=== PATIENT | female | born 1980 | race Caucasian/White ===

== ENCOUNTER 2016-05-08 20:41 | Emergency (ER) | payer OTHER ==
--- NOTE | 2016-05-08 22:01 | ED ORDER SUMMARY ---
..... Patient: BRENDA DILLARD OrderSheet [facility] VisitID: [id number] [address] [place] [address] 36y, F Registration Date/Time: 05/08/2016 ORDER SHEET Weight: 72.5 kg (stated) Allergies: Codeine, Morphine and Related, Septra, Sulfa Antibiotics GENERAL ORDERS: Elbow 3 or 4V Right Urgent (21:01 05/08/2016 EKoroleva P.A.-C) (Ack 21:01 LMuller) (21:16 SBalde R.N.) MEDICATION ORDERS: Percocet PO 5/325 mg (HIGH ALERT MEDICATION, NOW) (21:01 05/08/2016 EKoroleva P.A.-C) (21:16 SBalde R.N.) Dilaudid IM 1 mg (HIGH ALERT MEDICATION, NOW) (21:40 05/08/2016 EKoroleva P.A.-C) (22:04 SBalde R.N.) Phenergan IM 12.5 mg (HIGH ALERT MEDICATION, NOW) (21:40 05/08/2016 EKoroleva P.A.-C) (22:05 SBalde R.N.) IV FLUIDS: ORDER SHEET NOTES: [Electronically signed by Talita Adams R.N. (22:18 05/08/2016)] [Electronically signed by Bibi Kearns P.A.-C (22:27 05/08/2016)] [Electronically locked/signed by Talita Adams R.N. (22:18 05/08/2016)]
--- NOTE | 2016-05-08 22:01 | ED ORDER SUMMARY ---
..... Patient: BRENDA DILLARD OrderSheet [facility] VisitID: [id number] [address] [place] [address] 36y, F Registration Date/Time: 05/08/2016 ORDER SHEET Weight: 72.5 kg (stated) Allergies: Codeine, Morphine and Related, Septra, Sulfa Antibiotics GENERAL ORDERS: Elbow 3 or 4V Right Urgent (21:01 05/08/2016 EKoroleva P.A.-C) (Ack 21:01 LMuller) (21:16 SBalde R.N.) MEDICATION ORDERS: Percocet PO 5/325 mg (HIGH ALERT MEDICATION, NOW) (21:01 05/08/2016 EKoroleva P.A.-C) (21:16 SBalde R.N.) Dilaudid IM 1 mg (HIGH ALERT MEDICATION, NOW) (21:40 05/08/2016 EKoroleva P.A.-C) (22:04 SBalde R.N.) Phenergan IM 12.5 mg (HIGH ALERT MEDICATION, NOW) (21:40 05/08/2016 EKoroleva P.A.-C) (22:05 SBalde R.N.) IV FLUIDS: ORDER SHEET NOTES: [Electronically signed by Talita Adams R.N. (22:18 05/08/2016)] [Electronically signed by Bibi Kearns P.A.-C (22:27 05/08/2016)] [Electronically locked/signed by Talita Adams R.N. (22:18 05/08/2016)]
--- NOTE | 2016-05-08 22:01 | ED NURSING NOTES ---
Clinical Report - Nurses [facility] [address] [place] [address] 05/08/2016 20:42 [id number] TRI[facility] Triage time 20:50 May 08 2016. Acuity: LEVEL 4. Chief Complaint: RIGHT UPPER EXTREMITY PAIN. Alert. No acute distress. STACIE COMA SCORE: Stacie Coma Scale: 15- eyes open spontaneously (4); best verbal response- oriented x 4 (5); best motor response- obeys commands (6). --20:53 Talita Adams R.N. 20:50 05/08/16. BP: 128/102. HR: 89. RR: 18. O2 saturation: 96%. Temp: 97.4 F. Pain level now 9/10. --20:53 Talita Adams R.N. Weight: 72.5 kg stated. Height/Length: 67 inches Per Patient. BMI: 25.1. --20:50 Talita Adams R.N. Medications None. --20:52 Talita Adams R.N. Allergies Codeine. Morphine and Related. Septra. Sulfa Antibiotics. --20:52 Talita Adams R.N. History Arrived by private vehicle. Historian: patient. Accompanied by family. Primary physician (Araceli Nam). ( Roller Skating tonight with son, fell and landed on her right arm, however it was behind her body when she landed on it, extended posterior.). Injury occurred. This occurred just prior to arrival. Occurred at school. Treatment WARDROBE SPECIALIST: None. PAST MEDICAL HX: Tetanus status: up-to-date. Has not received seasonal influenza immunization. SOCIAL HX: Current every day heavy tobacco smoker- less than 1 pack per day. Occasional alcohol use. History of drug use: marijuana. NUTRITIONAL RISK ASSESSMENT: The nutritional risk assessment revealed no deficiencies. FUNCTIONAL ASSESSMENT: Functional assessment: no impairments noted. LEARNING NEEDS ASSESSMENT: The learning needs assessment revealed no barriers. SKIN INTEGRITY ASSESSMENT: Skin integrity risk assessment completed. No skin integrity risk identified. --20:53 Talita Adams R.N. PROBLEMS: Diarrhea. Vomiting. Headache. Fall. Sprain. Contusion. Lumbar Strain. Interstitial cystitis. Pharyngitis. Gastritis. Gastroesophageal Reflux Disease. Acute Pain. Bronchitis. Laceration. Head Injury. Tetanus Status. Pelvic Pain. Dental Pain. Abdominal Pain. Anxiety Reaction. Arthritis. Urinary Calculi. Immunizations. LNMP - Last Normal Menstrual Period. --20:53 Talita Adams R.N. ADDITIONAL SURGERIES: Bunion on lt foot. . Bunionectomy Rt foot. Colonoscopy. Endoscopy. Hysterectomy. Laparoscopy. Oophorectomy. Previous Abdominal Surgery. --20:53 Talita Adams R.N. Interventions ID band on patient. To room. --20:53 Talita Adams R.N. PHYSICAL ASSESSMENT EXTREMITIES: Right elbow. Right forearm. --20:58 Talita Adams R.N. Ambulatory to room. GENERAL / NEURO / PSYCH: Appears in pain and anxious. (crying). EXTREMITIES: Neuro-vascular status intact to the extremity. SKIN: Skin is warm and dry. --21:16 Talita Adams R.N. NURSING PROGRESS NOTES Cold pack applied. Extremity elevated. Neuro-vascular extremity check. Reassurance given. --20:58 Talita Adams R.N. 21:16 05/08/2016 Percocet (Oxycodone-Acetaminophen) PO 5/325 mg Tablets 1 tab given. Allergies verified, confirmed 5 rights and sedative warning given to the patient. --21:16 Talita Adams R.N. Patient transported to radiology by stretcher with tech. --21:16 Talita Adams R.N. Patient returned from radiology by stretcher with tech. --21:35 Talita Adams R.N. 22:04 05/08/2016 Dilaudid (HYDROmorphone HCl PF) IM 1 mg given. Given in the right deltoid. Allergies verified, confirmed 5 rights and sedative warning given to the patient. --22:04 Talita Adams R.N. 22:05 05/08/2016 Phenergan (Promethazine HCl) IM 12.5 mg given. Given in the right deltoid. Allergies verified, confirmed 5 rights and sedative warning given to the patient. (mixed with Dilaudid 1mg IM). --22:05 Talita Adams R.N. Long arm fiberglass upper extremity splint applied to right arm by nurse. Distal pulses intact and sensation intact (22 in long arm splint to Right Elbow). --22:07 Talita Adams R.N. ( DEMETRIO Bandage applied to Fiberglass. Splint checked by PA.). --22:09 Talita Adams R.N. ( Sling applied). --22:18 Talita Adams R.N. DISPOSITION / DISCHARGE 22:09 05/08/16. BP: 120/86. HR: 80. RR: 18. O2 saturation: 98%. Pain level now 7/10. --22:10 Talita Adams R.N. No learning barriers present. Discharge instructions provided and reviewed with the patient. Reviewed medication(s). Reviewed referral to an orthopedic surgeon. Patient and spouse verbalized understanding. Written instructions provided in [place]. The patient was discharged by the physician assistant wrestling coach. She was discharged home and accompanied by spouse. She left the Emergency Department ambulatory and via private vehicle. Spouse driving. --22:11 Talita Adams R.N. Departure time: 22:17 May 08 2016. ( copy of xray). --22:17 Talita Adams R.N. Locked/Released at 05/08/2016 22:18 by Talita Adams R.N.
--- NOTE | 2016-05-08 22:01 | ED CLINICAL REPORT ---
Clinical Report - Physicians/Mid Levels [facility] [address] [place] [place] [address] 05/08/2016 20:42 [id number] Time Seen: 20:49 May 08 2016. Arrived- By private vehicle. Historian- patient. HISTORY OF PRESENT ILLNESS Chief Complaint: Injury to the right elbow and the right arm. The injury happened just prior to arrival. The patient sustained a direct blow. Occurred at home. Patient is experiencing moderate pain. ( right-hand dominant 36-year-old female with no prior right hand injury, fell backwards onto outstretched hand, without pain to the elbow. Reports incident occurred just prior to arrival. Pain worse with movement.). REVIEW OF SYSTEMS No tingling or skin laceration. All systems otherwise negative, except as recorded above. PAST HISTORY The patient has a dominant hand. She has not had a prior injury to the same area. Tetanus immunization status is up-to-date. SOCIAL HISTORY Smoker- current status unknown. History of drug use: marijuana. Not an IV drug user. ADDITIONAL NOTES The nursing notes have been reviewed. PHYSICAL EXAM Vital Signs: 05/08/2016 20:50 BP: 128/102. HR: 89. RR: 18. O2 saturation: 96%. Temp: 97.4 F. Appearance: Alert. No acute distress. Head: Head atraumatic. Eyes: Pupils equal, round and reactive to light. Eyes normal inspection. ENT: Ears normal. Nose normal. CVS: Normal heart rate and rhythm. Heart sounds normal. Respiratory: No respiratory distress. Breath sounds normal. No decreased air movement or accessory muscle use. Abdomen: No visible injury. Soft. No abdominal tenderness. Back: Normal inspection. No tenderness. No vertebral point tenderness or soft tissue tenderness. Skin: Skin intact. Skin warm. Normal skin color. Extremities: Right shoulder. No tenderness or laceration. Right arm. No tenderness or swelling. Right elbow: mild tenderness and swelling. No deformity. Right forearm: mild tenderness located in the proximal forearm. Neurovascular intact distally. No swelling, laceration, ecchymosis or foreign body. Right wrist. No swelling. Right hand. No tenderness or laceration. Neuro, Vascular and Tendons: Vascular status intact. Motor intact. Neuro: Oriented X 3. LABS, X-RAYS, AND EKG Rt Elbow X-ray: (IMPRESSION: 1. Intra-articular radial head fracture Electronically Final signed by:Masoud Bearden MD 05/08/2016 10:07:46 PM). PROGRESS AND PROCEDURES Splint Application: Time: 22:17 May 08 2016. Fiberglass long arm splint applied to right upper extremity. Splint applied by tech. Reassessed extremity following splint application. Neurovascular intact. Follow-up recommended within 5 days. Course of Care: patient with good distal sensation, no signs of open fracture, no signs of infectious process. Stable. No wrist tenderness or pain , no injury to head. NO signs of fb, or secondary infecitous process. Patient is stable. Physical exam findings are improved. Symptoms better. Patient/family counseled. Disposition: Discharged. CLINICAL IMPRESSION Closed fracture of the head of the right radius INSTRUCTIONS Wear sling and fiberglass splint. Limit use of your hand. Prescription Medications: Ibuprofen 800 mg tablets: take 1 tablet orally every 8 hours as needed for pain. Dispense fifteen (15). No refill. Percocet 5 mg/325 mg: take 1 tablet orally every 6 hours as needed for pain. Dispense twenty-five (25). No refill. Follow-up: Follow up with a specialist your ortho of choice or: Blanca Teran: [phone]. (Electronically signed by Bibi Kearns P.A.-C 05/08/2016 22:27)
--- NOTE | 2016-05-08 22:01 | ED CLINICAL REPORT ---
Clinical Report - Physicians/Mid Levels [facility] [address] [place] [address] 05/08/2016 20:42 [id number] Time Seen: 20:49 May 08 2016. Arrived- By private vehicle. Historian- patient. HISTORY OF PRESENT ILLNESS Chief Complaint: Injury to the right elbow and the right arm. The injury happened just prior to arrival. The patient sustained a direct blow. Occurred at home. Patient is experiencing moderate pain. ( right-hand dominant 36-year-old female with no prior right hand injury, fell backwards onto outstretched hand, without pain to the elbow. Reports incident occurred just prior to arrival. Pain worse with movement.). REVIEW OF SYSTEMS No tingling or skin laceration. All systems otherwise negative, except as recorded above. PAST HISTORY The patient has a dominant hand. She has not had a prior injury to the same area. Tetanus immunization status is up-to-date. SOCIAL HISTORY Smoker- current status unknown. History of drug use: marijuana. Not an IV drug user. ADDITIONAL NOTES The nursing notes have been reviewed. PHYSICAL EXAM Vital Signs: 05/08/2016 20:50 BP: 128/102. HR: 89. RR: 18. O2 saturation: 96%. Temp: 97.4 F. Appearance: Alert. No acute distress. Head: Head atraumatic. Eyes: Pupils equal, round and reactive to light. Eyes normal inspection. ENT: Ears normal. Nose normal. CVS: Normal heart rate and rhythm. Heart sounds normal. Respiratory: No respiratory distress. Breath sounds normal. No decreased air movement or accessory muscle use. Abdomen: No visible injury. Soft. No abdominal tenderness. Back: Normal inspection. No tenderness. No vertebral point tenderness or soft tissue tenderness. Skin: Skin intact. Skin warm. Normal skin color. Extremities: Right shoulder. No tenderness or laceration. Right arm. No tenderness or swelling. Right elbow: mild tenderness and swelling. No deformity. Right forearm: mild tenderness located in the proximal forearm. Neurovascular intact distally. No swelling, laceration, ecchymosis or foreign body. Right wrist. No swelling. Right hand. No tenderness or laceration. Neuro, Vascular and Tendons: Vascular status intact. Motor intact. Neuro: Oriented X 3. LABS, X-RAYS, AND EKG Rt Elbow X-ray: (IMPRESSION: 1. Intra-articular radial head fracture Electronically Final signed by:Masoud Bearden MD 05/08/2016 10:07:46 PM). PROGRESS AND PROCEDURES Splint Application: Time: 22:17 May 08 2016. Fiberglass long arm splint applied to right upper extremity. Splint applied by tech. Reassessed extremity following splint application. Neurovascular intact. Follow-up recommended within 5 days. Course of Care: patient with good distal sensation, no signs of open fracture, no signs of infectious process. Stable. No wrist tenderness or pain , no injury to head. NO signs of fb, or secondary infecitous process. Patient is stable. Physical exam findings are improved. Symptoms better. Patient/family counseled. Disposition: Discharged. CLINICAL IMPRESSION Closed fracture of the head of the right radius INSTRUCTIONS Wear sling and fiberglass splint. Limit use of your hand. Prescription Medications: Ibuprofen 800 mg tablets: take 1 tablet orally every 8 hours as needed for pain. Dispense fifteen (15). No refill. Percocet 5 mg/325 mg: take 1 tablet orally every 6 hours as needed for pain. Dispense twenty-five (25). No refill. Follow-up: Follow up with a specialist your ortho of choice or: Blanca Teran: [phone]. (Electronically signed by Bibi Kearns P.A.-C 05/08/2016 22:27)
--- NOTE | 2016-05-08 22:01 | ED NURSING NOTES ---
Clinical Report - Nurses [facility] [address] [place] [address] 05/08/2016 20:42 [id number] TRI[facility] Triage time 20:50 May 08 2016. Acuity: LEVEL 4. Chief Complaint: RIGHT UPPER EXTREMITY PAIN. Alert. No acute distress. STACIE COMA SCORE: Stacie Coma Scale: 15- eyes open spontaneously (4); best verbal response- oriented x 4 (5); best motor response- obeys commands (6). --20:53 Talita Adams R.N. 20:50 05/08/16. BP: 128/102. HR: 89. RR: 18. O2 saturation: 96%. Temp: 97.4 F. Pain level now 9/10. --20:53 Talita Adams R.N. Weight: 72.5 kg stated. Height/Length: 67 inches Per Patient. BMI: 25.1. --20:50 Talita Adams R.N. Medications None. --20:52 Talita Adams R.N. Allergies Codeine. Morphine and Related. Septra. Sulfa Antibiotics. --20:52 Talita Adams R.N. History Arrived by private vehicle. Historian: patient. Accompanied by family. Primary physician (Araceli Nam). ( Roller Skating tonight with son, fell and landed on her right arm, however it was behind her body when she landed on it, extended posterior.). Injury occurred. This occurred just prior to arrival. Occurred at school. Treatment TANKERMAN: None. PAST MEDICAL HX: Tetanus status: up-to-date. Has not received seasonal influenza immunization. SOCIAL HX: Current every day heavy tobacco smoker- less than 1 pack per day. Occasional alcohol use. History of drug use: marijuana. NUTRITIONAL RISK ASSESSMENT: The nutritional risk assessment revealed no deficiencies. FUNCTIONAL ASSESSMENT: Functional assessment: no impairments noted. LEARNING NEEDS ASSESSMENT: The learning needs assessment revealed no barriers. SKIN INTEGRITY ASSESSMENT: Skin integrity risk assessment completed. No skin integrity risk identified. --20:53 Talita Adams R.N. PROBLEMS: Diarrhea. Vomiting. Headache. Fall. Sprain. Contusion. Lumbar Strain. Interstitial cystitis. Pharyngitis. Gastritis. Gastroesophageal Reflux Disease. Acute Pain. Bronchitis. Laceration. Head Injury. Tetanus Status. Pelvic Pain. Dental Pain. Abdominal Pain. Anxiety Reaction. Arthritis. Urinary Calculi. Immunizations. LNMP - Last Normal Menstrual Period. --20:53 Talita Adams R.N. ADDITIONAL SURGERIES: Bunion on lt foot. . Bunionectomy Rt foot. Colonoscopy. Endoscopy. Hysterectomy. Laparoscopy. Oophorectomy. Previous Abdominal Surgery. --20:53 Talita Adams R.N. Interventions ID band on patient. To room. --20:53 Talita Adams R.N. PHYSICAL ASSESSMENT EXTREMITIES: Right elbow. Right forearm. --20:58 Talita Adams R.N. Ambulatory to room. GENERAL / NEURO / PSYCH: Appears in pain and anxious. (crying). EXTREMITIES: Neuro-vascular status intact to the extremity. SKIN: Skin is warm and dry. --21:16 Talita Adams R.N. NURSING PROGRESS NOTES Cold pack applied. Extremity elevated. Neuro-vascular extremity check. Reassurance given. --20:58 Talita Adams R.N. 21:16 05/08/2016 Percocet (Oxycodone-Acetaminophen) PO 5/325 mg Tablets 1 tab given. Allergies verified, confirmed 5 rights and sedative warning given to the patient. --21:16 Talita Adams R.N. Patient transported to radiology by stretcher with tech. --21:16 Talita Adams R.N. Patient returned from radiology by stretcher with tech. --21:35 Talita Adams R.N. 22:04 05/08/2016 Dilaudid (HYDROmorphone HCl PF) IM 1 mg given. Given in the right deltoid. Allergies verified, confirmed 5 rights and sedative warning given to the patient. --22:04 Talita Adams R.N. 22:05 05/08/2016 Phenergan (Promethazine HCl) IM 12.5 mg given. Given in the right deltoid. Allergies verified, confirmed 5 rights and sedative warning given to the patient. (mixed with Dilaudid 1mg IM). --22:05 Talita Adams R.N. Long arm fiberglass upper extremity splint applied to right arm by nurse. Distal pulses intact and sensation intact (22 in long arm splint to Right Elbow). --22:07 Talita Adams R.N. ( DEMETRIO Bandage applied to Fiberglass. Splint checked by PA.). --22:09 Talita Adams R.N. ( Sling applied). --22:18 Talita Adams R.N. DISPOSITION / DISCHARGE 22:09 05/08/16. BP: 120/86. HR: 80. RR: 18. O2 saturation: 98%. Pain level now 7/10. --22:10 Talita Adams R.N. No learning barriers present. Discharge instructions provided and reviewed with the patient. Reviewed medication(s). Reviewed referral to an orthopedic surgeon. Patient and spouse verbalized understanding. Written instructions provided in Italian. The patient was discharged by the physician music assistant. She was discharged home and accompanied by spouse. She left the Emergency Department ambulatory and via private vehicle. Spouse driving. --22:11 Talita Adams R.N. Departure time: 22:17 May 08 2016. ( copy of xray). --22:17 Talita Adams R.N. Locked/Released at 05/08/2016 22:18 by Talita Adams R.N.
--- NOTE | 2016-05-08 22:08 | DIAGNOSTIC IMAGING REPORT ---
PROCEDURE: XR ELBOW 3 OR 4 VIEWS - RIGHT INDICATION: TRAUMA/INJURY TECHNIQUE: Four views. COMPARISON: None. FINDINGS: Intra-articular radial head fracture with mild displacement. No dislocation. There is an elbow effusion. IMPRESSION: 1. Intra-articular radial head fracture
--- NOTE | 2016-05-08 22:28 | ED MED RECONCILIATION SUMMARY ---
Patient: BRENDA DILLARD Medication Reconciliation Report [facility] VisitID: [id number] [address] [place] [address] 36y, F Registration Date/Time: 05/08/2016 Weight: 72.5 kg Height/Length: 67 in. BMI: 25.1 ALLERGIES: Codeine, Morphine and Related, Septra, Sulfa Antibiotics The patient's Home Medications are listed below: NONE. The source(s) of the original Home Medication information: Not obtained. The following Medications were given to the patient in the Emergency Department: Percocet [PO] PO 1 tab, administered: 05/08/2016 9:16:00 PM Dilaudid [IM] IM 1 mg, administered: 05/08/2016 10:04:00 PM Phenergan [IM] IM 12.5 mg, administered: 05/08/2016 10:05:00 PM The following Medications were prescribed to the patient: Ibuprofen 800 mg tablets: take 1 tablet orally every 8 hours as needed for pain. Dispense fifteen (15). No refill. -- Bibi Kearns, P.A.-C Percocet 5 mg/325 mg: take 1 tablet orally every 6 hours as needed for pain. Dispense twenty-five (25). No refill. -- Bibi Kearns, P.A.-C
--- NOTE | 2016-05-08 22:28 | ED MAR SUMMARY ---
..... Medication Administration Record [facility] [address] [place] [address] Patient: BRENDA DILLARD Visit ID: [id number] 36y, F Weight: 72.5 kg Height/Length: 67 in BMI: 25.1 ALLERGIES: Codeine, Morphine and Related, Septra, Sulfa Antibiotics Given 21:16 05/08/2016 Talita Adams R.N. Medication Administered: PERCOCET [PO] (OXYCODONE-ACETAMINOPHEN), Dose: 1 tab 5/325 mg Tablets PO. Medication Ordered: Percocet PO 5/325 mg (HIGH ALERT MEDICATION, NOW). Given 22:04 05/08/2016 Talita Adams R.N. Medication Administered: DILAUDID [IM] (HYDROMORPHONE HCL PF), Dose: 1 mg IM. Medication Ordered: Dilaudid IM 1 mg (HIGH ALERT MEDICATION, NOW). Given 22:05 05/08/2016 Talita Adams R.N. Medication Administered: PHENERGAN [IM] (PROMETHAZINE HCL), Dose: 12.5 mg IM. Medication Ordered: Phenergan IM 12.5 mg (HIGH ALERT MEDICATION, NOW).
--- NOTE | 2016-05-08 22:28 | ED MAR SUMMARY ---
..... Medication Administration Record [facility] [address] [place] [address] Patient: BRENDA DILLARD Visit ID: [id number] 36y, F Weight: 72.5 kg Height/Length: 67 in BMI: 25.1 ALLERGIES: Codeine, Morphine and Related, Septra, Sulfa Antibiotics Given 21:16 05/08/2016 Talita Adams R.N. Medication Administered: PERCOCET [PO] (OXYCODONE-ACETAMINOPHEN), Dose: 1 tab 5/325 mg Tablets PO. Medication Ordered: Percocet PO 5/325 mg (HIGH ALERT MEDICATION, NOW). Given 22:04 05/08/2016 Talita Adams R.N. Medication Administered: DILAUDID [IM] (HYDROMORPHONE HCL PF), Dose: 1 mg IM. Medication Ordered: Dilaudid IM 1 mg (HIGH ALERT MEDICATION, NOW). Given 22:05 05/08/2016 Talita Adams R.N. Medication Administered: PHENERGAN [IM] (PROMETHAZINE HCL), Dose: 12.5 mg IM. Medication Ordered: Phenergan IM 12.5 mg (HIGH ALERT MEDICATION, NOW).
--- NOTE | 2016-05-08 22:28 | ED DISCHARGE INSTRUCTIONS ---
Patient: BRENDA DILLARD General Instructions [facility] VisitID: [id number] [address] [place] [address] 36y, F Registration Date/Time: 05/08/2016 Closed fracture of the head of the right radius INSTRUCTIONS Wear sling and fiberglass splint. Limit use of your hand. Prescription Medications: Ibuprofen 800 mg tablets: take 1 tablet orally every 8 hours as needed for pain. Dispense fifteen (15). No refill. Percocet 5 mg/325 mg: take 1 tablet orally every 6 hours as needed for pain. Dispense twenty-five (25). No refill. Follow-up: Follow up with a specialist your ortho of choice or: Blanca Teran: [phone]. ADDITIONAL INFORMATION Fracture: Radial Head You have a break (fracture) at the elbow (radial head). This may be a small crack in the bone; or a major break with the broken parts pushed out of position. This fracture usually takes 3-6 weeks to heal. In most cases, initial treatment is with a splint and sling, or a sling alone. Severe fractures may require putting the bone back in place. Sometimes surgery is required. Home Care: Keep your arm elevated to reduce pain and swelling. When sitting or lying down elevate your arm above the level of your heart. You can do this by placing your arm on a pillow that rests on your chest or on a pillow at your side. This is most important during the first 48 hours after injury. Apply an ice pack (ice cubes in a plastic bag, wrapped in a towel) over the injured area for 20 minutes every 1-2 hours the first day. You can place the ice pack inside the sling and directly over the splint. Continue with ice packs 3-4 times a day for the next two days, then as needed for the relief of pain and swelling. If you were given a sling and splint, leave it in place for the time advised. Keep the splint completely dry at all times. Bathe with your splint out of the water, protected with a large plastic bag, rubber-banded at the top end. If a fiberglass splint/cast gets wet, you can dry it with a hair-dryer. If you were given a sling only, wear it for the first week. Unless told otherwise, gradually begin range of motion exercises, after the first week, or as advised by your doctor. You may use acetaminophen (Tylenol) or ibuprofen (Motrin, Advil) to control pain, unless another pain medicine was prescribed. [NOTE: If you have chronic liver or kidney disease or ever had a stomach ulcer or GI bleeding, talk with your doctor before using these medicines.] Follow Up with your doctor in one week, or as advised by our staff, to be sure the bone is healing properly. An elbow joint will become stiff if immobile for too long. Ask your doctor when to begin range of motion exercises to prevent the elbow from getting stiff. [NOTE: If X-rays were taken, they will be reviewed by a radiologist. You will be notified if there are any new findings that may affect your care.] Get Prompt Medical Attention if any of the following occur: The plaster splint becomes wet or soft The fiberglass splint remains wet for more than 24 hours Increased tightness or pain in the elbow Fingers become swollen, cold, blue, numb or tingly Splint Care, Fiberglass The following will help you care for your splint: It will take up totwo hours for your fiber glass splint to fully harden; therefore, do notapply any pressure on it during that time or else it may break. To prevent swelling under the splint, for thefirst 48 hours: If the splint is on yourarm, keep it in a sling or raised to shoulder level when sitting or standing; rest it on your chest or on a pillow at your side when lying down. If the splint is on yourfoot, keep it propped up above the level of your waist when sitting or lying. Avoid crutch walking as much as possible during this time. Keep the splint/cast dry at all times. Bathe with your splint/cast well out of the water, protected with a large plastic bag, rubber-banded at the top end. If a fiberglass cast or splint gets wet, you can dry it with a hair-dryer. Follow-up care Follow up with your doctor or this facility as advised. When to seek medical care Get prompt medical attention if any of the following occur: Bad odor from the splint or wound-fluid stains the splint The splint cracks or remains wet over 24 hours Increasing tightness or pressure under the splint Fingers or toes become swollen, cold, blue, numb or tingly Increased pain under the splint Oxycodone Hydrochloride, Acetaminophen Oral tablet What is this medicine? ACETAMINOPHEN; OXYCODONE (a set a ERIC jossy fen; ox i KOE done) is a pain reliever. It is used to treat mild to moderate pain. How should I use this medicine? Take this medicine by mouth with a full glass of water. Follow the directions on the prescription label. Take your medicine at regular intervals. Do not take your medicine more often than directed. Talk to your yard stocker regarding the use of this medicine in children. Special care may be needed. Patients over 65 years old may have a stronger reaction and need a smaller dose. What side effects may I notice from receiving this medicine? Side effects that you should report to your doctor or health children's zoo caretaker as soon as possible: allergic reactions like skin rash, itching or hives, swelling of the face, lips, or tongue breathing difficulties, wheezing confusion light headedness or fainting spells severe stomach pain yellowing of the skin or the whites of the eyes Side effects that usually do not require medical attention (report to your doctor or health children's zoo caretaker if they continue or are bothersome): dizziness drowsiness nausea vomiting What may interact with this medicine? alcohol antihistamines barbiturates like amobarbital, butalbital, butabarbital, methohexital, pentobarbital, phenobarbital, thiopental, and secobarbital benztropine drugs for bladder problems like solifenacin, trospium, oxybutynin, tolterodine, hyoscyamine, and methscopolamine drugs for breathing problems like ipratropium and tiotropium drugs for certain stomach or intestine problems like propantheline, homatropine methylbromide, glycopyrrolate, atropine, belladonna, and dicyclomine general anesthetics like etomidate, ketamine, nitrous oxide, propofol, desflurane, enflurane, halothane, isoflurane, and sevoflurane medicines for depression, anxiety, or psychotic disturbances medicines for sleep muscle relaxants naltrexone narcotic medicines (opiates) for pain phenothiazines like perphenazine, thioridazine, chlorpromazine, mesoridazine, fluphenazine, prochlorperazine, promazine, and trifluoperazine scopolamine tramadol trihexyphenidyl What if I miss a dose? If you miss a dose, take it as soon as you can. If it is almost time for your next dose, take only that dose. Do not take double or extra doses. Where should I keep my medicine? Keep out of the reach of children. This medicine can be abused. Keep your medicine in a safe place to protect it from theft. Do not share this medicine with anyone. Selling or giving away this medicine is dangerous and against the law. Store at room temperature between 20 and 25 degrees C (68 and 77 degrees F). Keep container tightly closed. Protect from light. This medicine may cause accidental overdose and if it is taken by other adults, children, or pets. Flush any unused medicine down the toilet to reduce the chance of harm. Do not use the medicine after the expiration date. What should I tell my health care provider before I take this medicine? They need to know if you have any of these conditions: brain tumor Crohn's disease, inflammatory bowel disease, or ulcerative colitis drink more than 3 alcohol containing drinks per day drug abuse or addiction head injury heart or circulation problems kidney disease or problems going to the bathroom liver disease lung disease, asthma, or breathing problems an unusual or allergic reaction to acetaminophen, oxycodone, other opioid analgesics, other medicines, foods, dyes, or preservatives or trying to get breast-feeding What should I watch for while using this medicine? Tell your doctor or health children's zoo caretaker if your pain does not go away, if it gets worse, or if you have new or a different type of pain. You may develop tolerance to the medicine. Tolerance means that you will need a higher dose of the medication for pain relief. Tolerance is normal and is expected if you take this medicine for a long time. Do not suddenly stop taking your medicine because you may develop a severe reaction. Your body becomes used to the medicine. This does NOT mean you are addicted. Addiction is a behavior related to getting and using a drug for a non-medical reason. If you have pain, you have a medical reason to take pain medicine. Your doctor will tell you how much medicine to take. If your doctor wants you to stop the medicine, the dose will be slowly lowered over time to avoid any side effects. You may get drowsy or dizzy. Do not drive, use machinery, or do anything that needs mental alertness until you know how this medicine affects you. Do not stand or sit up quickly, especially if you are an older patient. This reduces the risk of dizzy or fainting spells. Alcohol may interfere with the effect of this medicine. Avoid alcoholic drinks. There are different types of narcotic medicines (opiates) for pain. If you take more than one type at the same time, you may have more side effects. Give your health care provider a list of all medicines you use. Your doctor will tell you how much medicine to take. Do not take more medicine than directed. Call emergency for help if you have problems breathing. The medicine will cause constipation. Try to have a bowel movement at least every 2 to 3 days. If you do not have a bowel movement for 3 days, call your doctor or health children's zoo caretaker. Do not take Tylenol (acetaminophen) or medicines that have acetaminophen with this medicine. Too much acetaminophen can be very dangerous. Many nonprescription medicines contain acetaminophen. Always read the labels carefully to avoid taking more acetaminophen. You have been given the following additional information: Radial Head Fracture Splint Care, Fiberglass Oxycodone Hydrochloride, Acetaminophen Oral tablet Limit use of your hand. (Electronically signed by Bibi Kearns P.A.-C 05/08/2016 22:27)
--- NOTE | 2016-05-08 22:28 | ED MED RECONCILIATION SUMMARY ---
Patient: BRENDA DILLARD Medication Reconciliation Report [facility] VisitID: [id number] [address] [place] [address] 36y, F Registration Date/Time: 05/08/2016 Weight: 72.5 kg Height/Length: 67 in. BMI: 25.1 ALLERGIES: Codeine, Morphine and Related, Septra, Sulfa Antibiotics The patient's Home Medications are listed below: NONE. The source(s) of the original Home Medication information: Not obtained. The following Medications were given to the patient in the Emergency Department: Percocet [PO] PO 1 tab, administered: 05/08/2016 9:16:00 PM Dilaudid [IM] IM 1 mg, administered: 05/08/2016 10:04:00 PM Phenergan [IM] IM 12.5 mg, administered: 05/08/2016 10:05:00 PM The following Medications were prescribed to the patient: Ibuprofen 800 mg tablets: take 1 tablet orally every 8 hours as needed for pain. Dispense fifteen (15). No refill. -- Bibi Kearns, P.A.-C Percocet 5 mg/325 mg: take 1 tablet orally every 6 hours as needed for pain. Dispense twenty-five (25). No refill. -- Bibi Kearns, P.A.-C
== END 2016-05-08 22:16 | disposition home or self-care (01) ==
LOC: ED SRH 20:41
DX: S52.121A Displaced fracture of head of right radius, initial encounter for closed fracture (principal); W19.XXXA Unspecified fall, initial encounter; Y93.9 Activity, unspecified; Y92.009 Unspecified place in unspecified non-institutional (private) residence as the place of occurrence of the external cause; Y99.9 Unspecified external cause status; F17.200 Nicotine dependence, unspecified, uncomplicated

== ENCOUNTER 2016-05-17 20:26 | Emergency (ER) | payer OTHER ==
--- NOTE | 2016-05-17 21:00 | ED CLINICAL REPORT ---
Clinical Report - Physicians/Mid Levels [place] [address] [place] [address] 05/17/2016 20:26 [id number] Time Seen: 00:44 May 18 2016. Arrived- By private vehicle. Historian- patient. HISTORY OF PRESENT ILLNESS Chief Complaint: Injury to the right elbow. The injury happened 4 days of pain due to splint. Fell (9 days prior, on 05/08/2016). Patient is experiencing moderate pain. Patient denies injury to the head. ( patient is status post a fracture approximately one week previously, to her radial head, was seen in the emergency department, had follow-up at [facility] or so, and is awaiting follow-up appointment in 3 days, on Thursday to get a better understanding she requires surgery or not. Patient reports a splint that was applied a orthopedics, is digging at her scheduled, she would like a new splint. Denies any new sudden changes of pain. Denies any paresthesias. Denies new swelling. Denies new trauma.). REVIEW OF SYSTEMS No skin laceration. All systems otherwise negative, except as recorded above. PAST HISTORY The patient's dominant hand is the right. She has not had a prior injury to the same area. SOCIAL HISTORY Smoker- current status unknown. History of drug use: marijuana. No alcohol use. ADDITIONAL NOTES The nursing notes have been reviewed. PHYSICAL EXAM Vital Signs: 05/17/2016 20:36 BP: 110/68. HR: 81. RR: 20. O2 saturation: 100%. Temp: 98.2 F. Pain level now: 8/10. Appearance: Alert. No acute distress. Head: Head atraumatic. CVS: Normal heart rate and rhythm. Respiratory: No respiratory distress. Breath sounds normal. Skin: Skin intact. Skin warm. Normal skin color. Extremities: Right arm. No tenderness or swelling. Right elbow: moderate tenderness and swelling located in the area of the radial head. Limited ROM secondary to (diminished flexion, supination and pronation). Neurovascular intact distally. No abrasion, ecchymosis, foreign body or deformity. Right forearm: mild swelling. No foreign body. Extremities otherwise negative. Neuro, Vascular and Tendons: No pulse deficit present. Capillary refill not prolonged. No sensory deficit. PROGRESS AND PROCEDURES Splint Application: Time: 12:10 May 18 2016. Fiberglass splint applied to right upper extremity. Splint applied by tech with direct supervision by me. Reassessed extremity following splint application. Neurovascular intact. Follow-up recommended within 3 days. Course of Care: patient has pain management home. No new sudden symptoms. Suspicion for compartment syndrome is low. Good distal sensation and good distal chief of anesthesiology strength as well as radial pulse. Patient is stable. Symptoms better. Disposition: Discharged. Condition: good. CLINICAL IMPRESSION Intraarticular fracture of the head of the right radius INSTRUCTIONS Limit use of your hand. Follow-up: Follow up with a specialist Thursday. (Electronically signed by Bibi Kearns P.A.-C 05/18/2016 12:12)
--- NOTE | 2016-05-17 21:00 | ED NURSING NOTES ---
Clinical Report - Nurses [facility] [address] [place] [address] 05/17/2016 20:26 [id number] Triage time 20:36. Acuity: LEVEL 3. Chief Complaint: RIGHT UPPER EXTREMITY PAIN. Location of symptoms- (Fractured elbow last week. Seen here). Alert. No acute distress. SEPSIS SCREEN: Sepsis Screen: negative. Negative (no infection suspected/documented). STACIE COMA SCORE: Stacie Coma Scale: 15- eyes open spontaneously (4); best verbal response- oriented x 4 (5); best motor response- obeys commands (6). --20:46 Cony Bartlett R.N. 20:36 05/17/16. BP: 110/68 taken on the left arm, while sitting. HR: 81. RR: 20. O2 saturation: 100%. Temp: 98.2 F. Pain level now: 8. --20:46 Cony Bartlett R.N. 20:36 05/17/16. BP: 110/68 taken on the left arm, while sitting. HR: 81. RR: 20. O2 saturation: 100%. Temp: 98.2 F. Pain level now: 11/13. --20:46 Cony Bartlett R.N. Weight: 68 kg estimated. Height/Length: 67 inches Estimated. BMI: 23.5. --20:46 Cony Bartlett R.N. Medications Percocet Oral 5/325 mg, PRN. --20:43 Cony Bartlett R.N. OxyCONTIN Oral 40 mg, 2x a day. --20:44 Cony Bartlett R.N. Medication/allergy information source: the patient. --20:46 Cony Bartlett R.N. Allergies Codeine. Morphine and Related. Septra. Sulfa Antibiotics. --20:43 Cony Bartlett R.N. History Arrived by private vehicle. Historian: patient and family. Accompanied by family. Primary physician (joe). Injury occurred. Location of injuries: right elbow. This occurred ( was original injury. Splint applied here. Saw Ortho at [facility], who replaced splint. Splint hits in the elbow at an odd angle, and causes pain.). Treatment ELECTRONICS INSTALLER: Splint and (Patient carried the splint in.). PAST MEDICAL HX: The patient has had a hysterectomy. SOCIAL HX: Light tobacco smoker (cigarette)- less than 1/2 a pack per day. History of drug use: marijuana. Recently used drugs days ago. No alcohol use. FALL RISK ASSESSMENT: Fall risk assessment completed. No fall risk identified. NUTRITIONAL RISK ASSESSMENT: The nutritional risk assessment revealed no deficiencies. FUNCTIONAL ASSESSMENT: Functional assessment: no impairments noted. LEARNING NEEDS ASSESSMENT: The learning needs assessment revealed no barriers. SKIN INTEGRITY ASSESSMENT: Skin integrity risk assessment completed. No skin integrity risk identified. --20:46 Cony Bartlett R.N. PROBLEMS: Radius Fracture. Diarrhea. Vomiting. Headache. Fall. Sprain. Contusion. Lumbar Strain. Interstitial cystitis. Pharyngitis. Gastritis. Gastroesophageal Reflux Disease. Acute Pain. Bronchitis. Laceration. Head Injury. Pelvic Pain. Dental Pain. Abdominal Pain. Anxiety Reaction. Arthritis. Urinary Calculi. Immunizations. --20:41 Cony Bartlett R.N. ADDITIONAL SURGERIES: Bunion on lt foot. . Bunionectomy Rt foot. Colonoscopy. Endoscopy. Hysterectomy. Laparoscopy. Oophorectomy. Previous Abdominal Surgery. --20:41 Cony Bartlett R.N. Interventions ID band on patient. To room. --20:46 Cony Bartlett R.N. PHYSICAL ASSESSMENT Ambulatory to room. GENERAL / NEURO / PSYCH: Oriented X 4. Appears in pain and anxious. EXTREMITIES: Limited ROM present. Right elbow: tenderness. SKIN: Skin intact. Skin is warm and dry. --20:47 Cony Bartlett R.N. NURSING PROGRESS NOTES Extremity elevated. Two patient identifiers checked. Call light placed in reach. Side rails up x 2. Bed placed in lowest position. Brakes of bed on. Patient ready for evaluation. --20:48 Cony Bartlett R.N. 21:00. Long arm fiberglass upper extremity splint applied to right arm by tech. Upper extremity splint applied to right arm by tech. --21:11 McQuoid, Eve, ER Tech1 21:08 Splint visualized by provider prior to discharge. --21:11 MadisonEve, ER Tech1. DISPOSITION / DISCHARGE Departure time: 21:04. Condition at departure: stable. The goals identified in the patient's plan of care were met. No learning barriers present. Discharge instructions provided and reviewed with the patient. Patient verbalized understanding. Written instructions provided in Persian. ( Bertha verbalizes understanding of all d/c instructions including need for f/u with her ortho doc on Thursday. She has no questions and voices no concerns at this time.). The patient was discharged by the physician assistant designer. She was discharged home and accompanied by spouse. She left the Emergency Department ambulatory and via private vehicle. Spouse driving. STACIE COMA SCORE: Stacie Coma Scale: 15- eyes open spontaneously (4); best verbal response- oriented x 4 (5); best motor response- obeys commands (6). --21:04 Thierry Law R.N. 21:03 05/17/16. BP: deferred. HR: deferred. RR: deferred. O2 saturation: deferred. Temp: deferred. Pain level now deferred. --21:04 Thierry Law R.N. Locked/Released at 05/17/2016 21:14 by Thierry Law R.N.
--- NOTE | 2016-05-17 21:00 | ED NURSING NOTES ---
Clinical Report - [facility] [address] [place] [address] 05/17/2016 20:26 [id number] Triage time 20:36. Acuity: LEVEL 3. Chief Complaint: RIGHT UPPER EXTREMITY PAIN. Location of symptoms- (Fractured elbow last week. Seen here). Alert. No acute distress. SEPSIS SCREEN: Sepsis Screen: negative. Negative (no infection suspected/documented). STACIE COMA SCORE: Stacie Coma Scale: 15- eyes open spontaneously (4); best verbal response- oriented x 4 (5); best motor response- obeys commands (6). --20:46 Cony Bartlett R.N. 20:36 05/17/16. BP: 110/68 taken on the left arm, while sitting. HR: 81. RR: 20. O2 saturation: 100%. Temp: 98.2 F. Pain level now: 8. --20:46 Cony Bartlett R.N. 20:36 05/17/16. BP: 110/68 taken on the left arm, while sitting. HR: 81. RR: 20. O2 saturation: 100%. Temp: 98.2 F. Pain level now: 11/13. --20:46 Cony Bartlett R.N. Weight: 68 kg estimated. Height/Length: 67 inches Estimated. BMI: 23.5. --20:46 Cony Bartlett R.N. Medications Percocet Oral 5/325 mg, PRN. --20:43 Cony Bartlett R.N. OxyCONTIN Oral 40 mg, 2x a day. --20:44 Cony Bartlett R.N. Medication/allergy information source: the patient. --20:46 Cony Bartlett R.N. Allergies Codeine. Morphine and Related. Septra. Sulfa Antibiotics. --20:43 Cony Bartlett R.N. History Arrived by private vehicle. Historian: patient and family. Accompanied by family. Primary physician (joe). Injury occurred. Location of injuries: right elbow. This occurred ( was original injury. Splint applied here. Saw Ortho at [facility], who replaced splint. Splint hits in the elbow at an odd angle, and causes pain.). Treatment CARDIAC EXERCISE SPECIALIST: Splint and (Patient carried the splint in.). PAST MEDICAL HX: The patient has had a hysterectomy. SOCIAL HX: Light tobacco smoker (cigarette)- less than 1/2 a pack per day. History of drug use: marijuana. Recently used drugs days ago. No alcohol use. FALL RISK ASSESSMENT: Fall risk assessment completed. No fall risk identified. NUTRITIONAL RISK ASSESSMENT: The nutritional risk assessment revealed no deficiencies. FUNCTIONAL ASSESSMENT: Functional assessment: no impairments noted. LEARNING NEEDS ASSESSMENT: The learning needs assessment revealed no barriers. SKIN INTEGRITY ASSESSMENT: Skin integrity risk assessment completed. No skin integrity risk identified. --20:46 Cony Bartlett R.N. PROBLEMS: Radius Fracture. Diarrhea. Vomiting. Headache. Fall. Sprain. Contusion. Lumbar Strain. Interstitial cystitis. Pharyngitis. Gastritis. Gastroesophageal Reflux Disease. Acute Pain. Bronchitis. Laceration. Head Injury. Pelvic Pain. Dental Pain. Abdominal Pain. Anxiety Reaction. Arthritis. Urinary Calculi. Immunizations. --20:41 Cony Bartlett R.N. ADDITIONAL SURGERIES: Bunion on lt foot. . Bunionectomy Rt foot. Colonoscopy. Endoscopy. Hysterectomy. Laparoscopy. Oophorectomy. Previous Abdominal Surgery. --20:41 Cony Bartlett R.N. Interventions ID band on patient. To room. --20:46 Cony Bartlett R.N. PHYSICAL ASSESSMENT Ambulatory to room. GENERAL / NEURO / PSYCH: Oriented X 4. Appears in pain and anxious. EXTREMITIES: Limited ROM present. Right elbow: tenderness. SKIN: Skin intact. Skin is warm and dry. --20:47 Cony Bartlett R.N. NURSING PROGRESS NOTES Extremity elevated. Two patient identifiers checked. Call light placed in reach. Side rails up x 2. Bed placed in lowest position. Brakes of bed on. Patient ready for evaluation. --20:48 Cony Bartlett R.N. 21:00. Long arm fiberglass upper extremity splint applied to right arm by tech. Upper extremity splint applied to right arm by tech. --21:11 McQuoid, Eve, ER Tech1 21:08 Splint visualized by provider prior to discharge. --21:11 MadisonEve, ER Tech1. DISPOSITION / DISCHARGE Departure time: 21:04. Condition at departure: stable. The goals identified in the patient's plan of care were met. No learning barriers present. Discharge instructions provided and reviewed with the patient. Patient verbalized understanding. Written instructions provided in Chinese. ( Bertha verbalizes understanding of all d/c instructions including need for f/u with her ortho doc on Thursday. She has no questions and voices no concerns at this time.). The patient was discharged by the physician registered medical assistant. She was discharged home and accompanied by spouse. She left the Emergency Department ambulatory and via private vehicle. Spouse driving. STACIE COMA SCORE: Stacie Coma Scale: 15- eyes open spontaneously (4); best verbal response- oriented x 4 (5); best motor response- obeys commands (6). --21:04 Thierry Law R.N. 21:03 05/17/16. BP: deferred. HR: deferred. RR: deferred. O2 saturation: deferred. Temp: deferred. Pain level now deferred. --21:04 Thierry Law R.N. Locked/Released at 05/17/2016 21:14 by Thierry Law R.N.
--- NOTE | 2016-05-17 21:00 | ED CLINICAL REPORT ---
Clinical Report - Physicians/Mid Levels [place] [address] [place] [address] 05/17/2016 20:26 [id number] Time Seen: 00:44 May 18 2016. Arrived- By private vehicle. Historian- patient. HISTORY OF PRESENT ILLNESS Chief Complaint: Injury to the right elbow. The injury happened 4 days of pain due to splint. Fell (9 days prior, on 05/08/2016). Patient is experiencing moderate pain. Patient denies injury to the head. ( patient is status post a fracture approximately one week previously, to her radial head, was seen in the emergency department, had follow-up at [facility] or so, and is awaiting follow-up appointment in 3 days, on Thursday to get a better understanding she requires surgery or not. Patient reports a splint that was applied a orthopedics, is digging at her scheduled, she would like a new splint. Denies any new sudden changes of pain. Denies any paresthesias. Denies new swelling. Denies new trauma.). REVIEW OF SYSTEMS No skin laceration. All systems otherwise negative, except as recorded above. PAST HISTORY The patient's dominant hand is the right. She has not had a prior injury to the same area. SOCIAL HISTORY Smoker- current status unknown. History of drug use: marijuana. No alcohol use. ADDITIONAL NOTES The nursing notes have been reviewed. PHYSICAL EXAM Vital Signs: 05/17/2016 20:36 BP: 110/68. HR: 81. RR: 20. O2 saturation: 100%. Temp: 98.2 F. Pain level now: 8/10. Appearance: Alert. No acute distress. Head: Head atraumatic. CVS: Normal heart rate and rhythm. Respiratory: No respiratory distress. Breath sounds normal. Skin: Skin intact. Skin warm. Normal skin color. Extremities: Right arm. No tenderness or swelling. Right elbow: moderate tenderness and swelling located in the area of the radial head. Limited ROM secondary to (diminished flexion, supination and pronation). Neurovascular intact distally. No abrasion, ecchymosis, foreign body or deformity. Right forearm: mild swelling. No foreign body. Extremities otherwise negative. Neuro, Vascular and Tendons: No pulse deficit present. Capillary refill not prolonged. No sensory deficit. PROGRESS AND PROCEDURES Splint Application: Time: 12:10 May 18 2016. Fiberglass splint applied to right upper extremity. Splint applied by tech with direct supervision by me. Reassessed extremity following splint application. Neurovascular intact. Follow-up recommended within 3 days. Course of Care: patient has pain management home. No new sudden symptoms. Suspicion for compartment syndrome is low. Good distal sensation and good distal jammer hooker strength as well as radial pulse. Patient is stable. Symptoms better. Disposition: Discharged. Condition: good. CLINICAL IMPRESSION Intraarticular fracture of the head of the right radius INSTRUCTIONS Limit use of your hand. Follow-up: Follow up with a specialist Thursday. (Electronically signed by Bibi Kearns P.A.-C 05/18/2016 12:12)
--- NOTE | 2016-05-18 12:12 | ED MED RECONCILIATION SUMMARY ---
Patient: BRENDA DILLARD Medication Reconciliation Report [facility] VisitID: [id number] [address] [place] [address] 36y, F Registration Date/Time: 05/17/2016 Weight: 68.0 kg Height/Length: 67 in. BMI: 23.5 ALLERGIES: Codeine, Morphine and Related, Septra, Sulfa Antibiotics The patient's Home Medications are listed below: THE FOLLOWING MEDICATIONS NEED TO BE RECONCILED: OxyCONTIN Oral 40 mg, 2x a day Percocet Oral 5/325 mg, PRN The source(s) of the original Home Medication information: patient The following Medications were given to the patient in the Emergency Department: None. The following Medications were prescribed to the patient: None.
--- NOTE | 2016-05-18 12:12 | ED MAR SUMMARY ---
..... Medication Administration Record [facility] [address], [place] [id number] Patient: BRENDA DILLARD Visit ID: [id number] 36y, F Weight: 68.0 kg Height/Length: 67 in BMI: 23.5 ALLERGIES: Codeine, Morphine and Related, Septra, Sulfa Antibiotics
--- NOTE | 2016-05-18 12:12 | ED DISCHARGE INSTRUCTIONS ---
Patient: BRENDA DILLARD General Instructions [facility] VisitID: [id number] [place] [address] 36y, F Registration Date/Time: 05/17/2016 Intraarticular fracture of the head of the right radius INSTRUCTIONS Limit use of your hand. Follow-up: Follow up with a specialist Thursday. ADDITIONAL INFORMATION Fracture: Radial Head You have a break (fracture) at the elbow (radial head). This may be a small crack in the bone; or a major break with the broken parts pushed out of position. This fracture usually takes 3-6 weeks to heal. In most cases, initial treatment is with a splint and sling, or a sling alone. Severe fractures may require putting the bone back in place. Sometimes surgery is required. Home Care: Keep your arm elevated to reduce pain and swelling. When sitting or lying down elevate your arm above the level of your heart. You can do this by placing your arm on a pillow that rests on your chest or on a pillow at your side. This is most important during the first 48 hours after injury. Apply an ice pack (ice cubes in a plastic bag, wrapped in a towel) over the injured area for 20 minutes every 1-2 hours the first day. You can place the ice pack inside the sling and directly over the splint. Continue with ice packs 3-4 times a day for the next two days, then as needed for the relief of pain and swelling. If you were given a sling and splint, leave it in place for the time advised. Keep the splint completely dry at all times. Bathe with your splint out of the water, protected with a large plastic bag, rubber-banded at the top end. If a fiberglass splint/cast gets wet, you can dry it with a hair-dryer. If you were given a sling only, wear it for the first week. Unless told otherwise, gradually begin range of motion exercises, after the first week, or as advised by your doctor. You may use acetaminophen (Tylenol) or ibuprofen (Motrin, Advil) to control pain, unless another pain medicine was prescribed. [NOTE: If you have chronic liver or kidney disease or ever had a stomach ulcer or GI bleeding, talk with your doctor before using these medicines.] Follow Up with your doctor in one week, or as advised by our staff, to be sure the bone is healing properly. An elbow joint will become stiff if immobile for too long. Ask your doctor when to begin range of motion exercises to prevent the elbow from getting stiff. [NOTE: If X-rays were taken, they will be reviewed by a radiologist. You will be notified if there are any new findings that may affect your care.] Get Prompt Medical Attention if any of the following occur: The plaster splint becomes wet or soft The fiberglass splint remains wet for more than 24 hours Increased tightness or pain in the elbow Fingers become swollen, cold, blue, numb or tingly You have been given the following additional information: Radial Head Fracture Limit use of your hand. (Electronically signed by Bibi Kearns P.A.-C 05/18/2016 12:12)
--- NOTE | 2016-05-18 12:12 | ED MAR SUMMARY ---
..... Medication Administration Record [facility] [address], [place] [id number] Patient: BRENDA DILLARD Visit ID: [id number] 36y, F Weight: 68.0 kg Height/Length: 67 in BMI: 23.5 ALLERGIES: Codeine, Morphine and Related, Septra, Sulfa Antibiotics
--- NOTE | 2016-05-18 12:12 | ED MED RECONCILIATION SUMMARY ---
Patient: BRENDA DILLARD Medication Reconciliation Report [facility] VisitID: [id number] [address] [place] [address] 36y, F Registration Date/Time: 05/17/2016 Weight: 68.0 kg Height/Length: 67 in. BMI: 23.5 ALLERGIES: Codeine, Morphine and Related, Septra, Sulfa Antibiotics The patient's Home Medications are listed below: THE FOLLOWING MEDICATIONS NEED TO BE RECONCILED: OxyCONTIN Oral 40 mg, 2x a day Percocet Oral 5/325 mg, PRN The source(s) of the original Home Medication information: patient The following Medications were given to the patient in the Emergency Department: None. The following Medications were prescribed to the patient: None.
--- NOTE | 2016-05-18 12:12 | ED ORDER SUMMARY ---
..... Patient: BRENAD DILLARD OrderSheet [facility] VisitID: [id number] [address] [place] [address] 36y, F Registration Date/Time: 05/17/2016 ORDER SHEET Weight: 68.0 kg (estimated) Allergies: Codeine, Morphine and Related, Septra, Sulfa Antibiotics GENERAL ORDERS: Splint (UE) (Right) (Long Arm) (21:12 05/17/2016 AMcQuoid ER Tech1 verbal order read back to EKoroleva P.A.-C) (21:13 AMcQuoid ER Tech1) Sling - arm (21:05/17/2016 AMcQuoid ER Tech1 verbal order read back to EKoroleva P.A.-C) (21:13 AMcQuoid ER Tech1) MEDICATION ORDERS: IV FLUIDS: ORDER SHEET NOTES: [Electronically signed by Thierry Law R.N. (21:05/17/2016)] [Electronically signed by Bibi Kearns P.A.-C (12:12 05/18/2016)] [Electronically locked/signed by Thierry Law R.N. (21:14 05/17/2016)]
--- NOTE | 2016-05-18 12:12 | ED ORDER SUMMARY ---
..... Patient: BRENDA DILLARD OrderSheet [facility] VisitID: [id number] [address] [place] [address] 36y, F Registration Date/Time: 05/17/2016 ORDER SHEET Weight: 68.0 kg (estimated) Allergies: Codeine, Morphine and Related, Septra, Sulfa Antibiotics GENERAL ORDERS: Splint (UE) (Right) (Long Arm) (21:12 05/17/2016 AMcQuoid ER Tech1 verbal order read back to EKoroleva P.A.-C) (21:13 AMcQuoid ER Tech1) Sling - arm (21:05/17/2016 AMcQuoid ER Tech1 verbal order read back to EKoroleva P.A.-C) (21:13 AMcQuoid ER Tech1) MEDICATION ORDERS: IV FLUIDS: ORDER SHEET NOTES: [Electronically signed by Thierry Law R.N. (21:05/17/2016)] [Electronically signed by Bibi Kearns P.A.-C (12:12 05/18/2016)] [Electronically locked/signed by Thierry Law R.N. (21:14 05/17/2016)]
== END 2016-05-17 21:04 | disposition home or self-care (01) ==
LOC: ED SRH 20:26
PROC: 2W0 Placement, Anatomical Regions, Change (ICD-10-PCS; principal; 2016-05-17)
DX: S52.121D Displaced fracture of head of right radius, subsequent encounter for closed fracture with routine healing (principal); X58.XXXD Exposure to other specified factors, subsequent encounter; Y93.9 Activity, unspecified; Y99.9 Unspecified external cause status; Y92.9 Unspecified place or not applicable; Z88.1 Allergy status to other antibiotic agents; Z88.2 Allergy status to sulfonamides; Z88.5 Allergy status to narcotic agent; Z90.710 Acquired absence of both cervix and uterus